=== PATIENT | male | born 1955 | race Caucasian/White ===

== ENCOUNTER 2018-04-01 14:41 | Inpatient (IN) ==
[2018-04-01] MEDS ORDERED: Heparin 1,000 UNITS/500 mL 500 ML ONE (16:24)
--- NOTE | 2018-04-01 16:31 | Vascular/Endovasc Consult Note ---
Date of Encounter: 04/01/18 Time of Encounter: 16:25 Assessment and Plan (1) PAD (peripheral artery disease) Current Visit: Yes Status: Acute Severe and limb threatening left lower extremity ischemia. Patient has obvious inflow obstruction to left lower extremity suggesting left ileal femoral occlusion. Suspect patient has long-standing atherosclerotic stenosis with recent and acute thrombosis. Patient to OR as an emergency this afternoon for limb salvage surgery. (2) HTN (hypertension) Current Visit: Yes Status: Acute The patient has severe hypertension. This will need further workup and treatment per medical service. Qualifiers: Hypertension type: unspecified Qualified Code(s): I10 - Essential (primary ) hypertension - History of Present Illness Consult date: 04/01/18 Consult reason: Left leg pain Chief complaint: Left leg pain History of present illness: Mr. Cooper is a 62 year old male Who was transferred from [facility] this afternoon because of left lower extremity symptoms. The patient states that he awoke this morning feeling in his usual state of health. He then went to work. While at work early this morning he felt severe left lower extremity and in particular left foot pain. He was unable to continue to work. He came home and then from there went to [facility]. There he underwent evaluation and noninvasive testing. Noninvasive testing demonstrated an ankle-brachial index of 0.68 on the right. No Doppler signals were identified on the left. High-grade stenosis was identified by duplex scanning in the right superficial femoral artery. Significantly reduced flow is identified throughout the left lower extremity. The patient is a very imprecise historian but I cannot clearly identify a history of claudication of the left lower extremity. He does state however he has had intermittent pain in the left leg that is rather vague. He does note that the left foot is now feeling better and he is able to move the toes of his left foot better now than he did earlier today. It is important to note that the patient has severe hypertension which has been poorly treated. He does not have a primary care physician at this time. He was in the emergency room last week at [facility] and he was started on blood pressure medicines. At that time he had no left lower extremity symptoms. The patient states that he is a former tobacco smoker but has not smoked for over 20 years. Other information from [facility] reveals an abnormal renal testing with a creatinine of approximally 2.6. Other laboratory tests show a normal CBC. Electrolytes are otherwise normal. Blood sugar is mildly elevated at 124. Lactic acid is elevated at 3.47. Medications and Allergies No Known Home Drugs 04/01/18 [History] 3 Allergy/AdvReac Type Severity Reaction Status Date / Time No Known Allergies Allergy Verified 04/01/18 16:14 All Systems Review: The remainder of the systems were reviewed and are negative Exam Vital Signs, Last 4 Hours Temp Pulse Resp BP Pulse Ox 04/01/18 16:16 98.9 F 71 20 200/87 98 General: Present: Conversant, No Apparent Distress, Well developed, Well nourished HEENT: Present: Atraumatic, Normocephaly, Trachea midline Neck: Present: Right Carotid bruit. Absent: JVD, Left Carotid bruit, Midline deformity, Tracheal deviation Cardiac: Present: Reg Rate and Rhythm, Normal S1 and S2, No Murmur. Absent: Irregular Rhythm Lungs: Present: Normal Breath Sounds Neuro: Present: Alert and responsive, No focal deficits noted, Cranial nerves grossly intact, Motor nerves grossly intact (Decreased movement of left foot compared to right). Absent: Sensory nerves grossly intact (Decreased sensation of left foot) Abdomen: Present: Soft, Non-tender, Other (No abdominal bruits. No pulsatile masses.). Absent: Masses Vascular: Present: Normal capillary refill (On the right), Bruit (Positive right femoral bruit. No left femoral bruit or pelvic bruit.), Pulse, absent ( No palpable femoral, popliteal, or pedal pulses on the left. Left foot is cooler than the right. No Doppler signals at left ankle.). Absent: Clubbing, Edema, Surgical incisions, Amputation(s) Skin: Present: No rashes noted on visualized skin. Absent: Wound/ulcer(s) Consult Discharge Plan - Plan Referrals: NONE,PCP [Primary Care Provider] -
[2018-04-01] MEDS ORDERED: Acetaminophen IV 1,000 MG/100 ML INFUS..BTL ONE (17:04)
[2018-04-01] MEDS ORDERED: *HR* Succinylcholine 200 MG/10 ML VIAL IVP ONE (17:06)
[2018-04-01] MEDS ORDERED: Ondansetron 4 MG/2 ML VIAL ONE (17:06)
[2018-04-01] MEDS ORDERED: *HR* Rocuronium Bromide 50 MG/5 ML VIAL ONE (17:06)
[2018-04-01] MEDS ORDERED: Dexamethasone 4 MG/ML VIAL ONE (17:06)
[2018-04-01] MEDS ORDERED: *HR* Propofol 200 MG/20 ML VIAL IVP ONE (17:06)
[2018-04-01] MEDS ORDERED: Lidocaine -MPF 4% 5 ML AMPUL ONE (17:06)
[2018-04-01] MEDS ORDERED: Lidocaine -MPF 2% 2 ML VIAL ONE (17:06)
[2018-04-01] MEDS ORDERED: *HR* FentaNYL (PF) 100 MCG/2 ML VIAL ONE (17:06)
[2018-04-01] MEDS ORDERED: *HR* Midazolam HCl 2 MG/2 ML VIAL ONE (17:06)
--- NOTE | 2018-04-01 17:09 | Anesthesia Evaluation PreOp ---
Date of Encounter: 04/01/18 Time of Encounter: 17:00 - Past History Planned Operation: Thrombectomy LLE Cardiac History: HTN, Hyperlipidemia, Other (PVD) Pulmonary History: Former smoker PATENT LITIGATION ASSOCIATE History: Denies Any Significant HX Other Medical History: Denies Any Significant HX Anesthesia History: No Prior Anesthetic Complications Alcohol Use: none Drug use: none Medications and Allergies No Known Home Drugs 04/01/18 [History] 3 Allergy/AdvReac Type Severity Reaction Status Date / Time No Known Allergies Allergy Verified 04/01/18 16:14 - Meds/Allergy Pre-op Review Medications Reviewed: Yes Allergies Reviewed: Yes Beta Blockers on Current Med List: No Anesthesia Exam O2 Sat Height 1.83 m Weight 89 kg O2 Sat by Pulse Oximetry 98 Vital Signs Temp Pulse Resp BP Pulse Ox 98.9 F 71 20 200/87 98 04/01/18 16:16 04/01/18 16:16 04/01/18 16:16 04/01/18 16:16 04/01/18 16:16 Height: 6'0 Weight: 196 lbs NPO (# of Hours): MN Pain Scale: 0 - HEENT Pupil (Motor): Pupils equal, EOMI Mallampati: III Teeth: Edentulous Oral Opening: Greater than 3 - PATENT LITIGATION ASSOCIATE LOC: Oriented PATENT LITIGATION ASSOCIATE Motor: Normal RUE, Normal LUE, Normal RLE, Normal LLE, Normal Face PATENT LITIGATION ASSOCIATE Sensory: Normal: RUE, LUE, RLE, LLE, Face - Cardiac Rhythm: Regular Murmur: None JVD: No Carotid Bruit: No - Pulmonary Breath Sounds: bilateral Clear Respiratory Effort: Symmetrical Anesthesia Assess/Plan ASA Score: 3 (HTN PVD), E Modified Ezio Scale for Level of Consciousness: Cooperative, oriented, and tranquil Anesthetic Plan: General Monitoring Plan: Standard Monitors Recovery Plan: PACU (Discussed GA, possible A-Line, agrees to proceed)
[2018-04-01] MEDS ORDERED: EPHEDrine 50 MG/ML VIAL ONE (18:06)
[2018-04-01] MEDS ORDERED: *HR* Metoprolol 5 MG/5 ML VIAL IVP ONE (18:47)
[2018-04-01] MEDS ORDERED: *HR* Meperidine 25 MG/ML SYRINGE IVP PRN (18:57)
[2018-04-01] MEDS ORDERED: *HR* OxyCODONE Immed Rel 5 MG TABLET PO PRN (18:57)
[2018-04-01] MEDS ORDERED: Albuterol 2.5 MG/3 ML NEBULIZER IH PRN (18:57)
[2018-04-01] MEDS ORDERED: *HR* Promethazine 25 MG/ML VIAL IVP PRN (18:57)
--- NOTE | 2018-04-01 19:10 | Operative Note ---
Date of procedure: 04/01/18 Pre-op diagnosis: Acute left lower extremity ischemialimb threatening Post-op diagnosis: same Procedure: Left lower extremity thrombectomy Complications: None Anesthesia: GETA Surgeon: Red Drummond Was there an career services assistant present: No Estimated blood loss (cc): 75 Specimen: Left iliac artery embolus/thrombus Condition: stable Disposition: PACU Procedure in Detail: History Mr. Cooper is a 62-year-old white male but was transferred as an emergency from [facility] to [place] this afternoon. He was found to have severe left lower extremity ischemia. He had an ankle-brachial index of 0. He had an abrupt onset of symptoms earlier this morning. On my exam I could palpate no pulses in the left lower extremity. He had a palpable right femoral pulse. Patient comes to the operating room as an emergency for limb threatening ischemia. Procedure After informed consent was obtained the patient was taken the operating room. General endotracheal anesthesia was established. The left lower extremity was sterilely prepped and draped. A timeout protocol was observed. An incision was made in the left groin. Dissection was carried down to the femoral artery and the femoral bifurcation. There were no palpable pulses. The artery had moderate atherosclerotic disease. The artery was not discolored or distended. The patient had been on IV heparin drip. An additional bolus of 3000 units of heparin were administered. The vessels were then clamped and a transverse arteriotomy was made on the distal aspect of the anterior portion of the common femoral artery. A 4-Tamazight Donald catheter was then passed both retrograde and antegrade. No thrombus was removed from either the superficial femoral or profunda femoris artery. Retrograde a large amount of material was removed. It appeared to be a single embolus or thrombus from the common iliac artery. Once this was removed the patient excellent pulsatile flow. The vessels were all flushed with heparinized saline. With this done the arteriotomy was closed using 6-0 Prolene suture. After appropriate backbleeding and flushing the clamps were removed. Pulsatile flow was then restored into the femoral system. There were excellent visible and palpable pulses at the femoral level. There were triphasic Doppler signals at the femoral level. A Doppler signals identified over the popliteal artery area no Doppler signal was identified over the left ankle area. The left groin was then irrigated. The wound was then closed in layers. The heparin drip will be continued postoperatively. The patient will need further testing once the renal function is improved and his hypertension is under better control. Also because of the appearance of the material in the left iliac system and an echocardiogram will be obtained to rule out the possibility of an embolus from the heart. A dry sterile dressing was applied to the left groin. The patient was taken from the operating room to the recovery room in stable condition.
[2018-04-01] MEDS ORDERED: Acetaminophen 325 MG TABLET PO PRN ×2 (20:44→23:00)
[2018-04-01] MEDS ORDERED: Naloxone 0.4 MG/ML INJ IVP PRN ×2 (20:44→23:00)
[2018-04-01] MEDS ORDERED: *HR* Labetalol 20 MG/4 ML SYRINGE IVP PRN (20:44)
--- NOTE | 2018-04-01 20:59 | Anesthesia Evaluation Post Op ---
Date of Encounter: 04/01/18 Time of Encounter: 20:58 - Vital Signs Vital Signs: Vital Signs/O2 Sat, Most Current Temp Pulse Resp BP Pulse Ox 98.2 F 73 16 148/72 95 04/01/18 20:16 04/01/18 20:16 04/01/18 20:16 04/01/18 20:16 04/01/18 20:16 - Lungs Lungs: Clear Ascult./Percussion - Airway Airway: Non-obstructed - Cardiovascular Regular Rate - Mental Status Mental Status: Alert & Oriented, Answers Appropriately - Pain Pain Scale: 0 Pain Scale used: Numeric (1 - 10) - Nausea Vomiting Nausea Vomiting: Not Present - Hydration Hydration: Ice chips, Rodriguez catheter - Discharge PostOp Status: Transfer Patient to floor
[2018-04-01] MEDS: D5% in 0.45% NACL 1,000 ML IVC SCH (21:02)
[2018-04-01] MEDS ORDERED: *HR* Heparin 5,000 UNIT/ML VIAL IVP PRN (22:15)
[2018-04-01] MEDS ORDERED: *HR* Heparin 5,000 UNIT/ML VIAL IVP ONE (22:15)
--- NOTE | 2018-04-01 22:46 | Internal Med History&Physical ---
Date of Encounter: 04/01/18 Time of Encounter: 22:37 Internal Medicine - H&P: HPI Admitted From: Emergency Dept Plans for Post Hospital Care: Home History of present illness: Mr. Cooper is a 62 year old male with past medical history of PAD, HTN, and former smoker. Pt presented to [facility] with sudden onset of LLE pain and numbness. Pt states he was not able to move his LLE today. Reports it was painful and cold to the touch. He denies prior hx of CAD, CA or HLD that he is aware of. Pt was evaluated at [facility] and sent over to be evaluated by vascular. At [facility] he was reported to have no distal pulses in either extremity and was unable to obatin doppler pulses. Also was unable to perform CT due to poor GFR and elevated Cr. Arterial doppler performed showed 75% stenosis of R superficial femoral artery and nearly 100% occlusion to left leg distal knee. ED administered Morphine and fentanyl for pain control and Heparin bolus of %,000 units with drip. CODE STATUS: FULL. Past Med Surg Social Fam HX - Social History Smoking Status: Former smoker Smokeless Tobacco Status: No Alcohol use: none Drug use: none Internal Medicine - H&P: Meds No Known Home Drugs 04/01/18 [History] 3 Allergy/AdvReac Type Severity Reaction Status Date / Time No Known Allergies Allergy Verified 04/01/18 16:14 All Systems PM: A 10-system review of systems was performed and is negative for pertinent findings except as documented above in the HPI. - Constitutional Vitals: Temp Pulse Resp BP Pulse Ox 98.2 F 79 16 148/72 95 04/01/18 20:16 04/01/18 21:00 04/01/18 20:16 04/01/18 20:16 04/01/18 20:16 General appearance: Present: A&O X 3, no acute distress - Head Head exam: Present: atraumatic, normocephalic - Eye Eye exam: Present: PERRL, conjuntiva pink, sclera anicteric Pupils: Present: PERRL - Neck Neck exam general surgery: Present: supple, trachea midline. Absent: lymphadenopathy - Respiratory Respiratory exam: Present: CTAB. Absent: accessory muscle use, rales, rhonchi, wheezes - Cardiovascular Cardiovascular exam: Present: RRR, +S1, +S2. Absent: diastolic murmur, gallop, rubs, systolic murmur - GI/Abdominal GI/Abdominal exam: Present: normal bowel sounds, soft, no peritoneal signs. Absent: distended, tenderness - Extremities Exam Extremities exam: Present: warm, radial pulses palpable and symmetrical. Absent : calf tenderness, cyanotic, pedal edema - Neurological Exam Neurological exam: Present: CN II-XII intact, oriented X3, no focal deficits. Absent: pronater drift, facial droop, speech deficit - Skin Skin exam: Present: dry, intact - VTE Reasons for not Prescribing Prophylaxis: Not indicated-Anticoagulated or INR therapeutic Documentation of Mechanical Device: Intermittent pneumatic compression device - Assessment and plan (1) Ischemia of left lower extremity Current Visit: Yes Status: Acute Assessment and plan: Pt is s/p limb salvage surgery. Vascular following. (2) Former smoker Current Visit: Yes Status: Acute Assessment and plan: Pt states eh quit 30 years ago. (3) PAD (peripheral artery disease) Current Visit: Yes Status: Acute Assessment and plan: Severe and limb threatening left lower extremity ischemia. Pt though denies hx of CAD or atherosclerotic disease, likely has long standing hx of this. Vascular on board. P will likely need to be started on Plavix and or ASA, will defer to vascular. Will check Lipid panel. (4) HTN (hypertension) Current Visit: Yes Status: Acute Assessment and plan: Will order hydralazine 5 mg IV prn for now. Pt non-complaint with BP medication and states he does not know what it is. Will clarify with his pharmacy in am. Qualifiers: Hypertension type: essential hypertension Qualified Code(s): I10 - Essential (primary) hypertension - Time Spent With Patient Total time spent is greater than 50% in coordination of care (as documented) at patient's floor/unit and/or counseling patient: 25 - 35 minutes
[2018-04-01] MEDS ORDERED: *HR* HYDROcodone/Acet 5/325 mg TABLET PO PRN (23:00)
[2018-04-01 23:25] LABS: Basophils % 0.2 %; Eosinophils % 0.5 %; Hematocrit 39.6 % (37.5-50.1); Hemoglobin 13.3 g/dL (12.9-16.9); Immature Granulocytes % 0.3 % (0-4); Lymphocytes # 0.3 K/mcL (0.6-4.6); Lymphocytes % 5.4 %; Mean Corpuscular HGB Conc 33.6 g/dL (31.6-35.5); Mean Corpuscular Hemoglobin 28.5 pg (28.0-33.3); Mean Platelet Volume 10.3 fL (9.4-12.4); Monocytes # 0.2 K/mcL (0.0-1.3); Monocytes % 2.9 %; Neutrophils # 5.7 K/mcL (1.6-8.9); Platelet Count 151 K/mcL (140-400); Red Blood Count 4.66 M/mcL (4.19-5.50); Red Cell Distribution Width 12.6 % (11.5-14.5); Segmented Neutrophils % 90.7 %
[2018-04-01] MEDS: Heparin 25,000 UNIT/500 ML D5W 25,000 UNIT/500 ML BAG IVC SCH (23:34)
[2018-04-01] MEDS: *HR* HYDROcodone/Acet 5/325 mg TABLET PO PRN (23:39)
[2018-04-01 23:44] LABS: Calcium 9.2 mg/dL (8.6-10.3)
[2018-04-02 03:20] LABS: Basophils % 0.3 %; Eosinophils % 0.2 %; Hematocrit 39.9 % (37.5-50.1); Hemoglobin 13.2 g/dL (12.9-16.9); Immature Granulocytes % 0.3 % (0-4); Lymphocytes # 0.4 K/mcL (0.6-4.6); Lymphocytes % 7.1 %; Mean Corpuscular HGB Conc 33.1 g/dL (31.6-35.5); Mean Corpuscular Hemoglobin 28.3 pg (28.0-33.3); Mean Corpuscular Volume 85.6 fL (83.0-100.0); Mean Platelet Volume 10.6 fL (9.4-12.4); Monocytes # 0.2 K/mcL (0.0-1.3); Neutrophils # 5.1 K/mcL (1.6-8.9); Platelet Count 151 K/mcL (140-400); Red Blood Count 4.66 M/mcL (4.19-5.50); Red Cell Distribution Width 12.7 % (11.5-14.5); Segmented Neutrophils % 88.1 %
[2018-04-02 03:39] LABS: Calcium 9.2 mg/dL (8.6-10.3); Chol/HDL Ratio 7.1 (0-4.9); Potassium 4.6 mEq/L (3.5-5.1)
[2018-04-02] MEDS: *HR* Heparin 5,000 UNIT/ML VIAL IVP PRN (03:39)
[2018-04-02] MEDS: *HR* OxyCODONE Immed Rel 5 MG TABLET PO PRN (07:53)
[2018-04-02] MEDS: D5% in 0.45% NACL 1,000 ML IVC SCH ×2 (07:58→20:31)
--- NOTE | 2018-04-02 09:38 | Internal Med Progress Note ---
Date of Encounter: 04/02/18 Time of Encounter: 09:30 - Assessment and plan (1) Ischemia of left lower extremity Current Visit: Yes Status: Acute Assessment and plan: s/p limb salvage surgery wih left lower extremity thrombectomy, Vascular surgery following. Vascular surgery suspect patient has distal disease in popliteal area, May need further intevention of angiography with angioplasty or left lower extremity surgery (2) PAD (peripheral artery disease) Current Visit: Yes Status: Acute Assessment and plan: s/p surgery.Continue heparin drip (3) HTN (hypertension) Current Visit: Yes Status: Acute Assessment and plan: hydralazine and labetalol PRN. Will start amlodipine 5mg po daily Qualifiers: Hypertension type: essential hypertension Qualified Code(s): I10 - Essential (primary) hypertension (4) DVT prophylaxis Current Visit: Yes Status: Acute Assessment and plan: On heparin drip - Time Spent With Patient Total time spent is greater than 50% in coordination of care (as documented) at patient's floor/unit and/or counseling patient: - Subjective Interval history: No acute events overnight - Constitutional Vitals: Temp Pulse Resp BP Pulse Ox 98.8 F 65 18 152/74 94 04/02/18 07:02 04/02/18 07:02 04/02/18 07:02 04/02/18 07:02 04/02/18 07:02 General appearance: Present: A&O X 3, no acute distress - Head Head exam: Present: atraumatic, normocephalic - Eye Eye exam: Present: PERRL, conjuntiva pink, sclera anicteric Pupils: Present: PERRL - Neck Neck exam general surgery: Present: supple, trachea midline. Absent: lymphadenopathy - Respiratory Respiratory exam: Present: CTAB. Absent: accessory muscle use, rales, rhonchi, wheezes - Cardiovascular Cardiovascular exam: Present: RRR, +S1, +S2. Absent: diastolic murmur, gallop, rubs, systolic murmur - GI/Abdominal GI/Abdominal exam: Present: normal bowel sounds, soft, no peritoneal signs. Absent: distended, tenderness - Extremities Exam Extremities exam: Absent: calf tenderness, cyanotic, pedal edema Additional comments: Lower extremity pulses difficult to palpate - Neurological Exam Neurological exam: Present: CN II-XII intact, oriented X3, no focal deficits. Absent: pronater drift, facial droop, speech deficit - Skin Skin exam: Present: dry, intact Internal Medicine: Result - Labs CBC & Chem 7: 04/02/18 03:08 04/02/18 03:08 Labs: Short CBC 04/01/18 04/02/18 Range/Units 23:13 03:08 WBC 6.3 5.8 (4.3-11.1) K/mcL Hgb 13.3 13.2 (12.9-16.9) g/dL Hct 39.6 39.9 (37.5-50.1) % Plt Count 151 151 (140-400) K/mcL Neutrophils # 5.7 5.1 (1.6-8.9) K/mcL BMP 04/01/18 04/02/18 23:13 03:08 Sodium 133 L 135 L Potassium 4.0 4.6 Chloride 105 106 Carbon Dioxide 20 L 21 L BUN 23 21 Creatinine 1.73 H 1.66 H Glucose 186 H 177 H Calcium 9.2 9.2 - VTE Reasons for not Prescribing Prophylaxis: Not indicated-Anticoagulated or INR therapeutic Documentation of Mechanical Device: Intermittent pneumatic compression device Consult Discharge Plan - Plan Referrals: Mandy Kerr [Advanced Practice Nurse] - 04/10/18 2:00 pm (Please fill out the new patient packet and take with you to your appointment. Show up 15 mins early. If you do not receive the new patient packet before your appointment show up 30mins early to fill out paper work. You will need $125.00 for the first visit. Take a list of all medications including over the counter. Picture ID, Ins. cards. If you need to cancel please call [phone] within 24 hours of your appointment) Red Drummond MD [Partnered Physician] - 04/24/18 11:45 am
[2018-04-02] MEDS: amLODIPine 5 MG TABLET PO SCH (11:46)
--- NOTE | 2018-04-02 12:46 | Vascular/Endovas Progress Note ---
Date of Encounter: 04/02/18 Time of Encounter: 08:15 - Assessment and plan (1) PAD (peripheral artery disease) Current Visit: Yes Status: Acute The patient's limb threatening status has been improved but the perfusion to the distal aspect of the left leg is still marginal. I would have expected he would have a stronger Doppler signal and increased temperature to the foot. Therefore I suspect he has distal disease probably in the popliteal area. Thus he will need further evaluation but this will require contrast. His BUN and creatinine have significantly improved from his admission. With continued hydration I would then suggest that a CT angiogram be performed tomorrow with an aortogram with runoff assuming his BUN and creatinine continue to improve. Also by then the echocardiogram will be performed and will have more ration about a potential embolic issue from the cardiac status. In the meantime we'll continue him on anticoagulation medication. Patient may need further intervention during this hospitalization of either angiography with angioplasty or left lower extremity surgery (2) HTN (hypertension) Current Visit: Yes Status: Acute The patient has history of severe hypertension. This will need further workup and treatment per medical service. His blood pressure following surgery shows moderate systolic hypertension but is under relatively good control. Qualifiers: Hypertension type: essential hypertension Qualified Code(s): I10 - Essential (primary) hypertension - Subjective Interval history: Patient is postoperative day #1 following emergency iliac thrombectomy. Pathology on the material removed is still pending. An echocardiogram was ordered postoperatively and that is still pending as well. Patient states his left leg is feeling better though he is not done any walking yet following surgery. Vital Signs, Last 4 Hours Temp Pulse Resp BP Pulse Ox 04/02/18 11:27 97.8 F 58 18 157/70 95 - Physical Examination General: Present: Conversant, No Apparent Distress Vascular: Present: Pulse, absent (The patient does not have a palpable left foot pulse. He does have monophasic Doppler signals at the dorsalis pedis and posterior tibial levels.), Color/Temperature (Left foot is warmer than yesterday but is still cooler than the right foot.), Surgical incisions (Dry dressing on the left groin incision) Abdomen: Present: Soft, Non-tender - VTE Reasons for not Prescribing Prophylaxis: Not indicated-Anticoagulated or INR therapeutic Documentation of Mechanical Device: Intermittent pneumatic compression device Results 04/02/18 03:08 04/02/18 03:08 Lab Results, Last 24 hours 04/01/18 04/01/18 04/01/18 19:45 23:13 23:13 WBC 6.3 Hgb 13.3 Hct 39.6 Plt Count 151 APTT 92.1 H Sodium 133 L Potassium 4.0 Chloride 105 Carbon Dioxide 20 L BUN 23 Creatinine 1.73 H Glucose 186 H Calcium 9.2 04/02/18 04/02/18 04/02/18 03:08 03:08 03:08 WBC 5.8 Hgb 13.2 Hct 39.9 Plt Count 151 APTT 54.9 H Sodium 135 L Potassium 4.6 Chloride 106 Carbon Dioxide 21 L BUN 21 Creatinine 1.66 H Glucose 177 H Calcium 9.2 04/02/18 09:19 WBC Hgb Hct Plt Count APTT 91.9 H D Sodium Potassium Chloride Carbon Dioxide BUN Creatinine Glucose Calcium - Imaging / Other Tests Echo: pending Consult Discharge Plan - Plan Referrals: Mandy Kerr [Advanced Practice Nurse] - 04/10/18 2:00 pm (Please fill out the new patient packet and take with you to your appointment. Show up 15 mins early. If you do not receive the new patient packet before your appointment show up 30mins early to fill out paper work. You will need $125.00 for the first visit. Take a list of all medications including over the counter. Picture ID, Ins. cards. If you need to cancel please call [phone] within 24 hours of your appointment) Red Drummond MD [Partnered Physician] - 04/24/18 11:45 am
[2018-04-02] MEDS ORDERED: Melatonin 3 MG TABLET PO PRN (19:46)
[2018-04-02] MEDS: Heparin 25,000 UNIT/500 ML D5W 25,000 UNIT/500 ML BAG IVC SCH (21:46)
[2018-04-02 23:21] LABS: Activated Partial Thrombo Time 130.9 Seconds (26.0-36.0)
[2018-04-02 23:34] LABS: Heparin anti-factor XA UFH 1.04 IU/mL (0.30-0.70)
[2018-04-03] MEDS: *HR* HYDROcodone/Acet 5/325 mg TABLET PO PRN ×2 (02:27→13:46)
[2018-04-03 04:07] LABS: Basophils % 0.3 %; Eosinophils # 0.3 K/mcL (0.0-0.6); Eosinophils % 3.2 %; Hemoglobin 12.5 g/dL (12.9-16.9); Immature Granulocytes % 0.3 % (0-4); Immature Platelets 4.6 % (1.1-6.1); Lymphocytes # 0.9 K/mcL (0.6-4.6); Lymphocytes % 9.1 %; Mean Corpuscular HGB Conc 32.9 g/dL (31.6-35.5); Mean Corpuscular Hemoglobin 28.5 pg (28.0-33.3); Mean Corpuscular Volume 86.6 fL (83.0-100.0); Mean Platelet Volume 10.7 fL (9.4-12.4); Monocytes # 0.7 K/mcL (0.0-1.3); Monocytes % 7.8 %; Neutrophils # 7.5 K/mcL (1.6-8.9); Platelet Count 161 K/mcL (140-400); Red Blood Count 4.39 M/mcL (4.19-5.50); Red Cell Distribution Width 12.8 % (11.5-14.5); Segmented Neutrophils % 79.3 %
[2018-04-03 04:31] LABS: BUN/Creatinine Ratio 18 (6-26); Blood Urea Nitrogen 18 mg/dL (8-23); Calcium 9.1 mg/dL (8.6-10.3); Carbon Dioxide 22 mEq/L (23-29); Chloride 104 mEq/L (98-107); Glucose 125 mg/dL (70-105); Osmolality,Calculated 281 (280-300); Potassium 3.9 mEq/L (3.5-5.1); Sodium 134 mEq/L (136-145); eGFR For African Americans > 60 (> 60); eGFR For Non-African Americans > 60 (> 60)
[2018-04-03] MEDS: D5% in 0.45% NACL 1,000 ML IVC SCH ×2 (06:58→17:55)
[2018-04-03] MEDS: amLODIPine 5 MG TABLET PO SCH (07:33)
[2018-04-03] MEDS: *HR* OxyCODONE Immed Rel 5 MG TABLET PO PRN ×2 (07:34→18:00)
[2018-04-03] MEDS ORDERED: Isovue-370 500 ML INFUS..BTL IV ONE (07:46)
--- NOTE | 2018-04-03 09:50 | Internal Med Progress Note ---
Date of Encounter: 04/03/18 Time of Encounter: 09:45 - Assessment and plan (1) Ischemia of left lower extremity Current Visit: Yes Status: Acute Assessment and plan: s/p limb salvage surgery wih left lower extremity thrombectomy, Vascular surgery following. Vascular surgery suspect patient has distal disease in popliteal area, May need further intevention of angiography with angioplasty or left lower extremity surgery. Plan for CT angiogram today (2) PAD (peripheral artery disease) Current Visit: Yes Status: Acute Assessment and plan: s/p surgery.Continue heparin drip (3) HTN (hypertension) Current Visit: Yes Status: Acute Assessment and plan: hydralazine and labetalol PRN. Will start amlodipine 5mg po daily Qualifiers: Hypertension type: essential hypertension Qualified Code(s): I10 - Essential (primary) hypertension (4) DVT prophylaxis Current Visit: Yes Status: Acute Assessment and plan: On heparin drip - Time Spent With Patient Total time spent is greater than 50% in coordination of care (as documented) at patient's floor/unit and/or counseling patient: - Subjective Interval history: No acute events overnight - Constitutional Vitals: Temp Pulse Resp BP Pulse Ox 99.1 F 64 17 151/77 95 04/03/18 07:02 04/03/18 07:02 04/03/18 07:02 04/03/18 07:02 04/03/18 07:02 General appearance: Present: A&O X 3, no acute distress - Head Head exam: Present: atraumatic, normocephalic - Eye Eye exam: Present: PERRL, conjuntiva pink, sclera anicteric Pupils: Present: PERRL - Neck Neck exam general surgery: Present: supple, trachea midline. Absent: lymphadenopathy - Respiratory Respiratory exam: Present: CTAB. Absent: accessory muscle use, rales, rhonchi, wheezes - Cardiovascular Cardiovascular exam: Present: RRR, +S1, +S2. Absent: diastolic murmur, gallop, rubs, systolic murmur - GI/Abdominal GI/Abdominal exam: Present: normal bowel sounds, soft, no peritoneal signs. Absent: distended, tenderness - Extremities Exam Extremities exam: Present: warm, radial pulses palpable and symmetrical. Absent : calf tenderness, cyanotic, pedal edema Additional comments: faint pulses bilaterally - Neurological Exam Neurological exam: Present: CN II-XII intact, oriented X3, no focal deficits. Absent: pronater drift, facial droop, speech deficit - Skin Skin exam: Present: dry, intact Internal Medicine: Result - Labs CBC & Chem 7: 04/03/18 02:51 04/03/18 02:51 Labs: Short CBC 04/03/18 Range/Units 02:51 WBC 9.5 D (4.3-11.1) K/mcL Hgb 12.5 L (12.9-16.9) g/dL Hct 38.0 (37.5-50.1) % Plt Count 161 (140-400) K/mcL Neutrophils # 7.5 (1.6-8.9) K/mcL BMP 04/03/18 02:51 Sodium 134 L Potassium 3.9 Chloride 104 Carbon Dioxide 22 L BUN 18 Creatinine 0.99 Glucose 125 H Calcium 9.1 - Impressions Impressions Echocardiogram 04/02/18 20:44 Impressions: LVEF 60%. Normal LV chamber size, wall thickness and function. Mild left ventricular diastolic dysfunction. Normal right ventricular structure and function. No evidence of pulmonary hypertension. No significant valvular dysfunction. Left Ventricular Wall Motion: Rest Echo Findings All wall segments showed normal motion. Findings: Study Quality * Technically adequate exam. ECG Findings * Normal sinus rhythm. Left Ventricle * LVEF 60%. * Normal LV chamber size, wall thickness and function. * Mild left ventricular diastolic dysfunction. Right Ventricle * Normal right ventricular structure and function. Left Atrium * Mildly dilated left atrium. Right Atrium * Normal right atrial size. Interatrial Septum * Interatrial septum not well evaluated. Aortic Valve * Aortic valve not well visualized. * No aortic regurgitation. * No aortic stenosis. Mitral Valve * Normal mitral valve structure and function. * No mitral regurgitation. * No mitral stenosis. Tricuspid Valve * Normal tricuspid valve structure and function. * Trace tricuspid regurgitation. * No evidence of pulmonary hypertension. Pulmonic Valve * Normal pulmonic valve structure and function. * No pulmonic regurgitation. Aorta * Normally sized aortic root. Pericardium * The pericardium appears normal. IVC * Normal IVC dimensions and inspiratory collapse. Pulmonary Artery * Normal visualized portions of the main pulmonary artery. - VTE Reasons for not Prescribing Prophylaxis: Not indicated-Anticoagulated or INR therapeutic Documentation of Mechanical Device: Intermittent pneumatic compression device Consult Discharge Plan - Plan Referrals: Madny Kerr [Advanced Practice Nurse] - 04/10/18 2:00 pm (Please fill out the new patient packet and take with you to your appointment. Show up 15 mins early. If you do not receive the new patient packet before your appointment show up 30mins early to fill out paper work. You will need $125.00 for the first visit. Take a list of all medications including over the counter. Picture ID, Ins. cards. If you need to cancel please call [phone] within 24 hours of your appointment) Red Drummond MD [Partnered Physician] - 04/24/18 11:45 am
--- NOTE | 2018-04-03 10:18 | Vascular/Endovas Progress Note ---
Date of Encounter: 04/03/18 Time of Encounter: 08:00 - Assessment and plan (1) PAD (peripheral artery disease) Current Visit: Yes Status: Acute The left lower extremity perfusion is clearly improved from his preoperative state and improved from yesterday. However the patient complains of persistent left foot pain. Therefore I recommended that we obtain a CT aortogram with runoff today to further evaluate his lower extremity status. Pending the results of the CTA the patient may require than either angiography with endovascular therapy or further surgery for the left lower extremity. Should this be necessary we'll plan on offering this to the patient tomorrow. For today Will continue his intravenous heparin drip and IV hydration. His renal function has returned to normal. He has had excellent urinary output. His blood pressure has remained acceptable. The left foot is clearly viable and improved. (2) HTN (hypertension) Current Visit: Yes Status: Acute The patient has history of severe hypertension. This will need further workup and treatment per medical service. His blood pressure following surgery shows moderate systolic hypertension but is under relatively good control. Qualifiers: Hypertension type: essential hypertension Qualified Code(s): I10 - Essential (primary) hypertension - Subjective Interval history: Patient is postoperative day #2 following emergency iliac thrombectomy. Pathology on the material removed is still pending. An echocardiogram performed yesterday was normal. There are no findings to suggest significant left ventricular wall changes or source of potential embolization. Patient states his left foot continues to cause him pain. He states that the left foot is no better than prior to the emergency embolectomy. The patient has not done any walking. Vital Signs, Last 4 Hours Temp Pulse Resp BP Pulse Ox 04/03/18 07:02 99.1 F 64 17 151/77 95 - Physical Examination General: Present: Conversant, No Apparent Distress Vascular: Present: Color/Temperature (The color and temperature of the left foot and toes is improved today as compared to yesterday.), Surgical incisions ( Dry dressing on left groin incision), Other (Patient has stronger and more multiphasic Doppler signals at the left foot and ankle today as compared to yesterday.). Absent: Edema Abdomen: Present: Soft, Non-tender Skin: Present: No rashes noted on visualized skin - VTE Reasons for not Prescribing Prophylaxis: Not indicated-Anticoagulated or INR therapeutic Documentation of Mechanical Device: Intermittent pneumatic compression device Results 04/03/18 02:51 06/20/18 02:51 Lab Results, Last 24 hours 04/02/18 04/02/18 04/03/18 16:12 22:45 02:51 WBC 9.5 D Hgb 12.5 L Hct 38.0 Plt Count 161 APTT 40.1 H D 130.9 H* D Sodium Potassium Chloride Carbon Dioxide BUN Creatinine Glucose Calcium 04/03/18 04/03/18 02:51 06:22 WBC Hgb Hct Plt Count APTT 46.7 H D Sodium 134 L Potassium 3.9 Chloride 104 Carbon Dioxide 22 L BUN 18 Creatinine 0.99 Glucose 125 H Calcium 9.1 - Imaging / Other Tests Echo: report reviewed Consult Discharge Plan - Plan Referrals: Mandy Kerr [Advanced Practice Nurse] - 04/10/18 2:00 pm (Please fill out the new patient packet and take with you to your appointment. Show up 15 mins early. If you do not receive the new patient packet before your appointment show up 30mins early to fill out paper work. You will need $125.00 for the first visit. Take a list of all medications including over the counter. Picture ID, Ins. cards. If you need to cancel please call [phone] within 24 hours of your appointment) Red Drummond MD [Partnered Physician] - 04/24/18 11:45 am
[2018-04-03] MEDS: Heparin 25,000 UNIT/500 ML D5W 25,000 UNIT/500 ML BAG IVC SCH (17:21)
--- NOTE | 2018-04-03 18:11 | Event Note ---
Date of Encounter: 04/03/18 Time of Encounter: 18:10 I have personally reviewed the CT angiogram images I ordered earlier today. This demonstrates a lesion at the distal popliteal and tibial peroneal trunk on the left. I believe this represents a combination of both acute and chronic disease. Therefore recommended to the patient to optimize his left lower extremity perfusion he would need to return to the operating room for surgical thrombectomy possible endarterectomy possible bypass for this left sided lesion. This is not amenable to endovascular intervention. After full discussion the patient agrees and we'll proceed with surgery for tomorrow morning.
[2018-04-03] MEDS: *HR* Heparin 5,000 UNIT/ML VIAL IVP PRN (21:54)
--- NOTE | 2018-04-03 22:02 | Anesthesia Evaluation PreOp ---
Date of Encounter: 04/03/18 Time of Encounter: 22:00 - Past History Planned Operation: Left FEm-fem Bypass Cardiac History: HTN, Hyperlipidemia, Other (PVD) Pulmonary History: Denies Any Significant HX APRON MAN History: Denies Any Significant HX Other Medical History: Denies Any Significant HX Anesthesia History: No Prior Anesthetic Complications, Past Anesthesia (LLE Thrombectomy 04/01/2018) Alcohol Use: none Drug use: none Medications and Allergies No Known Home Drugs 04/01/18 [History] 3 Allergy/AdvReac Type Severity Reaction Status Date / Time No Known Allergies Allergy Verified 04/01/18 16:14 - Meds/Allergy Pre-op Review Medications Reviewed: Yes Allergies Reviewed: Yes Beta Blockers on Current Med List: Yes If Beta Blockers taken, Date/Time (Last Dose taken): labetalol @ 18:40 2017 Anesthesia Results - Labs 04/03/18 02:51 04/03/18 02:51 Echocardiogram Name: Carlos Cooper Date of Study: 04/02/2018 EV/EV echocardiogram Impressions: LVEF 60%. Normal LV chamber size, wall thickness and function. Mild left ventricular diastolic dysfunction. Normal right ventricular structure and function. No evidence of pulmonary hypertension. No significant valvular dysfunction. - Imaging EKG: other (Telemetry strip 04/02/2018 NSR) Anesthesia Exam Vital Signs/O2 Sat, Most Current Temp Pulse Resp BP Pulse Ox 99.1 F 67 16 165/74 93 04/03/18 18:53 04/03/18 18:53 04/03/18 18:53 04/03/18 18:53 04/03/18 18:53 NPO (# of Hours): > 8 hrs Pain Scale: 0 - HEENT Pupil (Motor): Pupils equal, EOMI Mallampati: III Teeth: Edentulous Oral Opening: Greater than 3 - APRON MAN LOC: Oriented APRON MAN Motor: Normal RUE, Normal LUE, Normal RLE, Normal LLE, Normal Face APRON MAN Sensory: Normal: RUE, LUE, RLE, LLE, Face - Cardiac Rhythm: Regular Murmur: None JVD: No Carotid Bruit: No - Pulmonary Breath Sounds: bilateral Clear Respiratory Effort: Symmetrical Anesthesia Assess/Plan ASA Score: 3 Modified [place] Scale for Level of Consciousness: Cooperative, oriented, and tranquil Anesthetic Plan: General Monitoring Plan: Standard Monitors, A-Line (possible)
[2018-04-04] MEDS: D5% in 0.45% NACL 1,000 ML IVC SCH ×2 (03:41→03:42)
[2018-04-04] MEDS: *HR* OxyCODONE Immed Rel 5 MG TABLET PO PRN (03:42)
[2018-04-04 04:55] LABS: Basophils % 0.5 %; Eosinophils # 0.2 K/mcL (0.0-0.6); Eosinophils % 2.5 %; Hematocrit 37.8 % (37.5-50.1); Hemoglobin 12.7 g/dL (12.9-16.9); Immature Granulocytes % 0.5 % (0-4); Lymphocytes # 1.2 K/mcL (0.6-4.6); Lymphocytes % 13.1 %; Mean Corpuscular HGB Conc 33.6 g/dL (31.6-35.5); Mean Corpuscular Hemoglobin 29.1 pg (28.0-33.3); Mean Corpuscular Volume 86.5 fL (83.0-100.0); Mean Platelet Volume 10.4 fL (9.4-12.4); Monocytes # 0.8 K/mcL (0.0-1.3); Monocytes % 9.3 %; Neutrophils # 6.5 K/mcL (1.6-8.9); Platelet Count 167 K/mcL (140-400); Red Blood Count 4.37 M/mcL (4.19-5.50); Red Cell Distribution Width 12.7 % (11.5-14.5); Segmented Neutrophils % 74.1 %
[2018-04-04 05:15] LABS: BUN/Creatinine Ratio 15 (6-26); Blood Urea Nitrogen 12 mg/dL (8-23); Calcium 9.1 mg/dL (8.6-10.3); Carbon Dioxide 24 mEq/L (23-29); Chloride 103 mEq/L (98-107); Glucose 127 mg/dL (70-105); Osmolality,Calculated 279 (280-300); Potassium 3.9 mEq/L (3.5-5.1); Sodium 134 mEq/L (136-145); eGFR For African Americans > 60 (> 60); eGFR For Non-African Americans > 60 (> 60)
[2018-04-04] MEDS ORDERED: ceFAZolin 1,000 MG, Sodium Chloride IRRigation 1,000 ML IR ONE (06:00)
[2018-04-04] MEDS ORDERED: *HR* FentaNYL (PF) 100 MCG/2 ML VIAL ONE ×2 (06:28→17:11)
[2018-04-04] MEDS ORDERED: Ondansetron 4 MG/2 ML VIAL ONE (06:28)
[2018-04-04] MEDS ORDERED: Dexamethasone 4 MG/ML VIAL ONE (06:28)
[2018-04-04] MEDS ORDERED: *HR* Propofol 200 MG/20 ML VIAL IVP ONE (06:28)
[2018-04-04] MEDS ORDERED: *HR* Succinylcholine 200 MG/10 ML VIAL IVP ONE (06:28)
[2018-04-04] MEDS ORDERED: *HR* Midazolam HCl 2 MG/2 ML VIAL ONE ×2 (06:28→16:52)
[2018-04-04] MEDS ORDERED: Lidocaine -MPF 2% 2 ML VIAL ONE ×2 (06:28→07:23)
[2018-04-04] MEDS ORDERED: *HR* PHENYLEPHRINE 1,000 MCG/10 ML SYRINGE IVP ONE ×3 (06:29→10:30)
[2018-04-04] MEDS ORDERED: *HR* Remifentanil 2 MG VIAL IVP ONE (06:31)
[2018-04-04] MEDS ORDERED: Heparin 1,000 UNITS/500 mL 1,000 ML ONE (07:13)
[2018-04-04] MEDS ORDERED: Heparin 1,000 UNITS/500 mL 500 ML ONE ×2 (07:23→14:27)
[2018-04-04] MEDS ORDERED: Heparin 25,000 UNIT/500 ML D5W 25,000 UNIT/500 ML BAG IVC ONE (09:16)
[2018-04-04] MEDS ORDERED: Dexamethasone 4 MG/ML VIAL IVP ONE ×2 (10:01→17:53)
[2018-04-04] MEDS ORDERED: Ondansetron 4 MG/2 ML VIAL IVP ONE ×2 (10:01→17:53)
[2018-04-04] MEDS ORDERED: *HR* Morphine 2 MG/ML SYRINGE IVP PRN ×2 (10:01→17:53)
[2018-04-04] MEDS ORDERED: *HR* Labetalol 20 MG/4 ML SYRINGE IVP PRN ×2 (10:01→17:53)
[2018-04-04] MEDS ORDERED: Acetaminophen IV 1,000 MG/100 ML INFUS..BTL IVPB ONE ×2 (10:01→17:53)
[2018-04-04] MEDS ORDERED: traMADol 50 MG TABLET PO PRN ×2 (10:11→17:53)
--- NOTE | 2018-04-04 10:24 | Internal Med Progress Note ---
Date of Encounter: 04/04/18 Time of Encounter: 10:20 - Assessment and plan (1) Ischemia of left lower extremity Current Visit: Yes Status: Acute Assessment and plan: s/p limb salvage surgery wih left lower extremity thrombectomy, Vascular surgery following. Vascular surgery suspect patient has distal disease in popliteal area. CT angiogram done yesterday showed left lower lesion at distal popliteal and tibial peroneal trunk on the left. Vascular surgery plan for thrombectomy with endarterectomy today (2) PAD (peripheral artery disease) Current Visit: Yes Status: Acute Assessment and plan: s/p surgery.Continue heparin drip (3) HTN (hypertension) Current Visit: Yes Status: Acute Assessment and plan: hydralazine and labetalol PRN. Will start amlodipine 5mg po daily Qualifiers: Hypertension type: essential hypertension Qualified Code(s): I10 - Essential (primary) hypertension (4) DVT prophylaxis Current Visit: Yes Status: Acute Assessment and plan: On heparin drip - Time Spent With Patient Total time spent is greater than 50% in coordination of care (as documented) at patient's floor/unit and/or counseling patient: - Subjective Interval history: No acute events overnight - Constitutional Vitals: Temp Pulse Resp BP Pulse Ox 99.2 F 70 16 178/71 93 04/04/18 04:11 04/04/18 04:11 04/04/18 04:11 04/04/18 04:11 04/04/18 04:11 General appearance: Present: A&O X 3, no acute distress - Head Head exam: Present: atraumatic, normocephalic - Eye Eye exam: Present: PERRL, conjuntiva pink, sclera anicteric Pupils: Present: PERRL - Neck Neck exam general surgery: Present: supple, trachea midline. Absent: lymphadenopathy - Respiratory Respiratory exam: Present: CTAB. Absent: accessory muscle use, rales, rhonchi, wheezes - Cardiovascular Cardiovascular exam: Present: RRR, +S1, +S2. Absent: diastolic murmur, gallop, rubs, systolic murmur - GI/Abdominal GI/Abdominal exam: Present: normal bowel sounds, soft, no peritoneal signs. Absent: distended, tenderness - Extremities Exam Extremities exam: Present: warm, radial pulses palpable and symmetrical. Absent : calf tenderness, cyanotic, pedal edema Additional comments: faint lower extremity pulses - Neurological Exam Neurological exam: Present: CN II-XII intact, oriented X3, no focal deficits. Absent: pronater drift, facial droop, speech deficit - Skin Skin exam: Present: dry, intact Internal Medicine: Result - Labs CBC & Chem 7: 04/04/18 04:07 04/04/18 04:07 Labs: Short CBC 04/04/18 Range/Units 04:07 WBC 8.8 (4.3-11.1) K/mcL Hgb 12.7 L (12.9-16.9) g/dL Hct 37.8 (37.5-50.1) % Plt Count 167 (140-400) K/mcL Neutrophils # 6.5 (1.6-8.9) K/mcL BMP 04/04/18 04:07 Sodium 134 L Potassium 3.9 Chloride 103 Carbon Dioxide 24 BUN 12 Creatinine 0.79 Glucose 127 H Calcium 9.1 - Impressions Impressions Aorta w/Runoff CTA 04/03/18 10:00 IMPRESSION: 1. A small amount of acute appearing thrombus is present in the distal left popliteal artery, extending into the tibioperoneal trunk. However, the peroneal and posterior tibial arteries appear patent to the foot. The anterior tibial artery is occluded distally, which is age-indeterminate. 2. Small linear filling defects in the left common femoral and proximal superficial femoral arteries, which could represent small, nonflow limiting dissections or wall-adherent thrombus. 3. Possible mild to moderate stenosis at the origin of the right common iliac artery. Severe diffuse atherosclerosis in the right superficial femoral and popliteal arteries with multifocal stenoses, including a focal high-grade stenosis in the distal right superficial femoral artery. There is two vessel runoff to the right foot. 4. 11 x 7 mm calculus in the left renal pelvis. Inflammatory changes are present along the left renal pelvis, which could be related to acute or remote infection. No significant left-sided hydronephrosis. 5. 3.3 cm infrarenal abdominal aortic aneurysm. Follow-up per guidelines below. 6. 5 mm nonobstructive right-sided renal calculus. RECOMMENDATIONS: Managing Abdominal Aortic Aneurysms 3.0-3.4 cm: Every 3 years. *For abdominal aortas with maximum diameter of 2.6-2.9 cm meeting criteria for AAA (>50% of proximal normal segment). Reference: J Vasc Surg. 2009 Jul;50(4 Suppl):S2-49 D/ / 04/03/2018 14:19:07 Abhijeet Gonzalez MD / [email or web address] Interpreting Provider: Abhijeet Gonzalez MD - VTE Reasons for not Prescribing Prophylaxis: Not indicated-Anticoagulated or INR therapeutic Documentation of Mechanical Device: Intermittent pneumatic compression device Consult Discharge Plan - Plan Referrals: Mandy Kerr [Advanced Practice Nurse] - 04/10/18 2:00 pm (Please fill out the new patient packet and take with you to your appointment. Show up 15 mins early. If you do not receive the new patient packet before your appointment show up 30mins early to fill out paper work. You will need $125.00 for the first visit. Take a list of all medications including over the counter. Picture ID, Ins. cards. If you need to cancel please call [phone] within 24 hours of your appointment) Red Drummond MD [Partnered Physician] - 04/24/18 11:45 am
[2018-04-04] MEDS ORDERED: *HR* Remifentanil 1 MG VIAL IVP ONE ×3 (11:19→15:29)
[2018-04-04] MEDS ORDERED: *HR* Phenylephrine 10 MG/ML VIAL ONE (11:19)
[2018-04-04] MEDS ORDERED: ceFAZolin 2,000 MG in Water for inj. (sterile) 20 ML 20 ML IVP ONE (12:56)
[2018-04-04] MEDS ORDERED: *HR* Morphine 10 MG/ML VIAL ONE (13:43)
[2018-04-04] MEDS ORDERED: CefOXitin 2,000 MG VIAL ONE (16:32)
[2018-04-04] MEDS ORDERED: *HR* Metoprolol 5 MG/5 ML VIAL IVP ONE (16:36)
[2018-04-04] MEDS ORDERED: *HR* LORazepam 2 MG/ML VIAL ONE (17:06)
[2018-04-04] MEDS: *HR* LORazepam 2 MG/ML VIAL IVP STA ×2 (17:07→20:44)
[2018-04-04] MEDS: *HR* FentaNYL (PF) 100 MCG/2 ML VIAL IVP ONE ×2 (17:12→20:45)
[2018-04-04] MEDS ORDERED: Dexmedetomidine HCl 200 MCG/50 ML MLS IVC ONE (17:15)
--- NOTE | 2018-04-04 17:35 | Operative Note ---
Date of procedure: 04/04/18 Pre-op diagnosis: Persistent left lower extremity ischemia Post-op diagnosis: same Procedure: Left below-knee popliteal and tibial peroneal trunk endarterectomy with bovine pericardial patch angioplasty Catheter-based tibial thrombectomy Proximal left peroneal artery endarterectomy with bovine pericardial patch angioplasty Proximal and distal(at the level of the ankle) left posterior tibial artery endarterectomy with bovine pericardial patch angioplasties Complications: None Anesthesia: GETA Surgeon: Red Drummond Was there an assistant kitchen manager present: No Estimated blood loss (cc): 300 Specimen: None Condition: stable Disposition: PACU Procedure in Detail: History Carlos Cooper is a 62-year-old white male who was transferred as an emergency from [facility] on Sunday afternoon for severe left lower extremity ischemia with no Doppler signals and ankle-brachial index of 0. Patient states he had an acute onset of symptoms that morning. He presented to the emergency room there and was eventually referred to [facility] for treatment. The patient does not give any antecedent history of vascular disease. He underwent an emergency iliofemoral thrombectomy/embolectomy. Head zoroastrianism of excellent pulsatile flow into the femoral system. Postoperatively the patient had a slow but steady improvement to the left foot. The patient had Doppler signals that he had persistent symptoms of discomfort and he had no palpable pulses. A CT angiogram was obtained which demonstrated a combination of potential acute and chronic obstruction at the tibial peroneal trunk and distal below-knee popliteal artery. Therefore the patient is taken back to the operating room today to try to alleviate this persistent ischemia. Procedure After informed consent was obtained the patient was taken from the chavez to the operating room. General endotracheal anesthesia was established. The left lower extremity was sterilely prepped and draped. A timeout protocol was observed. An incision was then made via the medial aspect of the proximal calf. Dissection was carried down to the popliteal and tibial peroneal trunk area. The patient had a palpable popliteal pulse. There was no palpable pulse in the tibial peroneal trunk region. Dissection was then undertaken to control the tibial vessels and popliteal. The posterior tibial artery was found to be very small in diameter. The peroneal artery appeared to be the dominant runoff. The patient was on intravenous heparin and this was continued to and during the operation. Additional boluses of heparin were administered intermittently during this procedure. The distal below the knee popliteal and tibial peroneal trunk was then opened. A combination of acute findings and severe chronic atherosclerotic stenotic disease was identified. A formal endarterectomy was then performed of the distal aspect of the [id number] popliteal artery and the entire length of the tibial peroneal trunk. The orifice of the anterior tibial artery was also endarterectomized as was the area of the bifurcation into the peroneal and posterior tibial artery. As noted elsewhere the posterior tibial artery was small. The plaque removed was combination of dense calcific disease as well as bland atherosclerotic material. The thrombus was relatively small in quantity. A patch change plasty was then performed using 6-0 Prolene suture. This was sewn into position. After appropriate backbleeding and flushing the artery was opened. However upon doing this the patient did not have Doppler signals identified at the ankle. Therefore the posterior tibial artery was opened at the ankle. There was no signal or pulse over this vessel. An arteriotomy was made and a 2- Trinid[place] Donald catheter was placed retrograde. The catheter did not extend up to the level of the takeoff of the posterior tibial artery. The vessel was found to be compressed by a wee Glander. This area was then opened with an 11 blade knife and Dotson scissors. An endarterectomy was performed. The catheter was then placed both proximal using tooth Trinidadian and 3-Trinidadian Donald catheters. A patch angioplasty was performed over the proximal aspect of the posterior tibial artery. Then over the area of the distal posterior tibial artery at the ankle a patch angioplasty was performed here as well. Evaluation of the peroneal artery revealed severe disease as well. Therefore this area was further dissected. Control was obtained and then a longitudinal arteriotomy was made on the peroneal artery extending up to and very close to the end of the original patch angioplasty. This area was then formally endarterectomized. A 2 and 3-Trinidadian Donald catheter were passed distally into the peroneal artery towards the ankle. The area was then flushed with heparinized saline. A bovine pericardial patch change plasty was then performed of this vessel. After appropriate backbleeding and flushing the vessel was opened. There was excellent pulsatile flow threes vessels with an easily palpable and visible pulse. However distally there was only a very flattened monophasic signal at the posterior tibial artery above the ankle. It was thought that this was due to the patient's prolonged procedure and vasospasm. Therefore the patient will be continued on his anticoagulation medicine and will not have further interventions. The wounds were then irrigated. There were closed in layers using absorbable suture. Dry sterile dressings were applied. The patient was extubated in the operating room. He was taken from the operating room to the recovery room in stable condition. No blood transfusions were administered. There were no specimens for the operation.
[2018-04-04] MEDS ORDERED: *HR* Labetalol 100 MG/20 ML MDV IVP PRN (17:53)
[2018-04-04] MEDS ORDERED: Heparin 25,000 UNIT/500 ML D5W 25,000 UNIT/500 ML BAG IVC SCH (17:53)
[2018-04-04] MEDS ORDERED: D5% in 0.45% NACL 1,000 ML IVC SCH (17:53)
[2018-04-04] MEDS ORDERED: *HR* HYDROcodone/Acet 5/325 mg TABLET PO PRN ×2 (17:53)
[2018-04-04] MEDS ORDERED: *HR* Heparin 5,000 UNIT/ML VIAL IVP PRN ×2 (17:53)
[2018-04-04] MEDS ORDERED: Acetaminophen 325 MG TABLET PO PRN ×2 (17:53)
[2018-04-04] MEDS ORDERED: *HR* OxyCODONE Immed Rel 5 MG TABLET PO PRN (17:53)
[2018-04-04] MEDS ORDERED: Naloxone 0.4 MG/ML INJ IVP PRN ×3 (17:53)
[2018-04-04] MEDS ORDERED: Melatonin 3 MG TABLET PO PRN (17:53)
[2018-04-04] MEDS ORDERED: Ringers Solution, Lactated 1,000 ML ONE (19:17)
[2018-04-04 20:04] LABS: ABG Base Excess 2 mEq/L (-2 to 3); ABG HCO3 26 mEq/L (21-27); ABG Oxygen Saturation 94 % (95-98); ABG PCO2 42 mmHg (35-45); ABG PH 7.41 pH Units (7.32-7.45); ABG PO2 70 mmHg (85-104); ABG TCO2 28 mEq/L (20-26)
[2018-04-04 20:27] LABS: Potassium 4.4 mEq/L (3.5-5.1)
[2018-04-04 20:32] LABS: Activated Partial Thrombo Time 120.2 Seconds (26.0-36.0)
[2018-04-04 20:45] LABS: Heparin anti-factor XA UFH 0.93 IU/mL (0.30-0.70)
[2018-04-05] MEDS: amLODIPine 5 MG TABLET PO SCH (07:58)
--- NOTE | 2018-04-05 09:43 | Anesthesia Procedures ---
Date of Encounter: 04/04/18 Time of Encounter: 07:40 Procedures: Anesthesia - Arterial Line Consent obtained: written consent Time out performed: Yes Sedation: Versed (mg): 2 Supplemental Oxygen via Nasal Cannula (L/min): 2 Local Anesthetic: Lidocaine 1% Size (Gauge): 20 Length (inches): 1 3/4 Technique Used: sterile prep Post-Procedure: line taped into place, dry sterile dressing placed Patient tolerated procedure: well Complications: none Site: Radial R Comments: Radial artery cannulated easy, atraumatic placement of catheter. Brisk pulsatile blood flow. Patient tolerated procedure well.
--- NOTE | 2018-04-05 13:26 | Internal Med Progress Note ---
Date of Encounter: 04/05/18 Time of Encounter: 13:40 - Assessment and plan (1) Ischemia of left lower extremity Current Visit: Yes Status: Acute Assessment and plan: s/p limb salvage surgery wih left lower extremity thrombectomy, Vascular surgery following. Vascular surgery suspect patient has distal disease in popliteal area. CT angiogram done 04/03 showed left lower lesion at distal popliteal and tibial peroneal trunk on the left. Vascular surgery performed a left below-knee popliteal and tibial peroneal trunk endarterectomy with bovine pericardial patch angioplasty, Catheter-based tibial thrombectomyProximal left peroneal artery endarterectomy with bovine pericardial patch angioplasty and Proximal and distal(at the level of the ankle) and left posterior tibial artery endarterectomy with bovine pericardial patch angioplasties on 04/04. Transferred to ICU post procedure (2) PAD (peripheral artery disease) Current Visit: Yes Status: Acute Assessment and plan: s/p surgery.Continue heparin drip (3) HTN (hypertension) Current Visit: Yes Status: Acute Assessment and plan: hydralazine and labetalol PRN. Will start amlodipine 5mg po daily Qualifiers: Hypertension type: essential hypertension Qualified Code(s): I10 - Essential (primary) hypertension (4) DVT prophylaxis Current Visit: Yes Status: Acute Assessment and plan: On heparin drip - Time Spent With Patient Total time spent is greater than 50% in coordination of care (as documented) at patient's floor/unit and/or counseling patient: - Subjective Interval history: No acute events overnight - Constitutional Vitals: Temp Pulse Resp BP Pulse Ox 97.9 F 86 18 151/63 93 04/05/18 12:00 04/05/18 13:00 04/05/18 13:00 04/05/18 13:00 04/05/18 13:00 General appearance: Present: A&O X 3, no acute distress - Head Head exam: Present: atraumatic, normocephalic - Eye Eye exam: Present: PERRL, conjuntiva pink, sclera anicteric Pupils: Present: PERRL - Neck Neck exam general surgery: Present: supple, trachea midline. Absent: lymphadenopathy - Respiratory Respiratory exam: Present: CTAB. Absent: accessory muscle use, rales, rhonchi, wheezes - Cardiovascular Cardiovascular exam: Present: RRR, +S1, +S2. Absent: diastolic murmur, gallop, rubs, systolic murmur - GI/Abdominal GI/Abdominal exam: Present: normal bowel sounds, soft, no peritoneal signs. Absent: distended, tenderness - Extremities Exam Extremities exam: Present: warm, radial pulses palpable and symmetrical. Absent : calf tenderness, cyanotic, pedal edema - Neurological Exam Neurological exam: Present: CN II-XII intact, oriented X3, no focal deficits. Absent: pronater drift, facial droop, speech deficit - Skin Skin exam: Present: dry, intact Internal Medicine: Result - Labs CBC & Chem 7: 04/04/18 04:07 04/04/18 19:37 Labs: BMP 04/04/18 19:37 Sodium 137 Potassium 4.4 Chloride 106 Carbon Dioxide 25 - ABG Interpretation ABG results: ABG ABG pH 7.41 pH Units (7.32-7.45) 04/04/18 20:01 ABG pCO2 42 mmHg (35-45) 04/04/18 20:01 ABG pO2 70 mmHg (85-104) L 04/04/18 20:01 ABG O2 Saturation 94 % (95-98) L 04/04/18 20:01 - Impressions Impressions Aorta w/Runoff CTA 04/03/18 10:00 IMPRESSION: 1. A small amount of acute appearing thrombus is present in the distal left popliteal artery, extending into the tibioperoneal trunk. However, the peroneal and posterior tibial arteries appear patent to the foot. The anterior tibial artery is occluded distally, which is age-indeterminate. 2. Small linear filling defects in the left common femoral and proximal superficial femoral arteries, which could represent small, nonflow limiting dissections or wall-adherent thrombus. 3. Possible mild to moderate stenosis at the origin of the right common iliac artery. Severe diffuse atherosclerosis in the right superficial femoral and popliteal arteries with multifocal stenoses, including a focal high-grade stenosis in the distal right superficial femoral artery. There is two vessel runoff to the right foot. 4. 11 x 7 mm calculus in the left renal pelvis. Inflammatory changes are present along the left renal pelvis, which could be related to acute or remote infection. No significant left-sided hydronephrosis. 5. 3.3 cm infrarenal abdominal aortic aneurysm. Follow-up per guidelines below. 6. 5 mm nonobstructive right-sided renal calculus. RECOMMENDATIONS: Managing Abdominal Aortic Aneurysms 3.0-3.4 cm: Every 3 years. *For abdominal aortas with maximum diameter of 2.6-2.9 cm meeting criteria for AAA (>50% of proximal normal segment). Reference: J Vasc Surg. 2008;50(4 Suppl):S2-49 D/ / 04/03/2018 14:19:07 Abhijeet Gonzalez MD / varun Interpreting Provider: Abhijeet Gonzalez MD Chest X-Ray 04/04/18 19:31 IMPRESSION: No acute abnormality. D/ / Dominick Dove MD / Dominick Dove MD Interpreting Provider: Dominick Dove MD - VTE Reasons for not Prescribing Prophylaxis: Not indicated-Anticoagulated or INR therapeutic Documentation of Mechanical Device: Intermittent pneumatic compression device Consult Discharge Plan - Plan Referrals: Mandy Kerr [Advanced Practice Nurse] - 04/10/18 2:00 pm (Please fill out the new patient packet and take with you to your appointment. Show up 15 mins early. If you do not receive the new patient packet before your appointment show up 30mins early to fill out paper work. You will need $125.00 for the first visit. Take a list of all medications including over the counter. Picture ID, Ins. cards. If you need to cancel please call [phone] within 24 hours of your appointment) Red Drummond MD [Partnered Physician] - 04/24/18 11:45 am
--- NOTE | 2018-04-05 14:48 | Vascular/[facility]as Progress Note ---
Date of Encounter: 04/05/18 Time of Encounter: 13:00 - Assessment and plan (1) PAD (peripheral artery disease) Current Visit: Yes Status: Acute Patent left lower extremity endarterectomies and patch angioplasties. Excellent perfusion to left foot. Patient has discomfort in left calf as expected following major intervention and dissection. There are no findings to suggest a hematoma or compartment syndrome. Patient's physical status may now be advanced with ambulation and sitting up in a chair. I have requested physical therapy evaluation. Due to the findings of the acute embolus in the left iliac system I've recommended that the patient go on anticoagulation for a minimum of 3 months. I' ve stopped his IV heparin and have initiated Xarleto therapy for this afternoon. I have reviewed in detail the patient's medical status with the patient's via a telephone conversation this afternoon. All questions were answered. (2) HTN (hypertension) Current Visit: Yes Status: Acute The patient has history of severe hypertension. This will need further workup and treatment per medical service. His blood pressure following surgery shows moderate systolic hypertension. Patient was given a dose of IV hydralazine for blood pressure control earlier today and was also given a dose of IV beta- blockade. Qualifiers: Hypertension type: essential hypertension Qualified Code(s): I10 - Essential (primary) hypertension (3) Left nephrolithiasis Current Visit: Yes Status: Acute Patient has left-sided stone. It is asymptomatic. By CT angiogram evaluation on Sunday there were no findings to suggest obstruction to the collecting system or to the kidney. On reviewing this with the patient he has no previous history of kidney stones. I explained that this would need to be followed but it was not and urgency or an emergency at this time. The presence of the left- sided kidney stone was also discussed with the patient's so she was aware of this should it become symptomatic in the future. This will need to be addressed as part of his outpatient follow-up with primary care for both his hypertension and kidney stones. - Subjective Interval history: Patient is postoperative day #4 following emergency iliac thrombectomy. Patient is postoperative day #1 following extensive popliteal and tibial endarterectomy and thrombectomy. The patient had a febrile response and significant agitation and confusion following surgery last night in the recovery room. He was transferred to the intensive care unit for observation. His sensorium has cleared and his temperature has returned to normal. The patient denies any significant discomfort or pain. He states his left foot is feeling better. He has been hemodynamically stable in the intensive care unit with a trend towards moderate systolic hypertension. The patient has tolerated his meals without nausea or vomiting. Vital Signs, Last 4 Hours Temp Pulse Resp BP Pulse Ox 04/05/18 13:00 86 18 151/63 93 04/05/18 12:00 97.9 F 84 18 159/71 95 04/05/18 11:57 97.9 F 04/05/18 11:00 81 20 172/74 95 - Physical Examination General: Present: Conversant, No Apparent Distress, Well developed, Well nourished Neck: Absent: JVD Cardiac: Present: Reg Rate and Rhythm, No Murmur. Absent: Irregular Rhythm Lungs: Present: Normal Breath Sounds Neuro: Present: Alert and responsive, No focal deficits noted, Cranial nerves grossly intact, Motor nerves grossly intact, Sensory nerves grossly intact Vascular: Present: Color/Temperature (His left foot is warm and pink. It is warmer and pinker than the right foot. The temperature and color is the best that it has been since been admitted to the hospital. The patient has Doppler signals 3 with the dominant Doppler signal over the dorsalis pedis artery. The left calf incisions are covered with surgical dressings.), Surgical incisions ( The left groin incision is clean and dry.). Absent: Cyanosis Abdomen: Present: Soft, Non-tender. Absent: Masses Skin: Present: No rashes noted on visualized skin - VTE Reasons for not Prescribing Prophylaxis: Not indicated-Anticoagulated or INR therapeutic Documentation of Mechanical Device: Intermittent pneumatic compression device Results 04/04/18 04:07 04/04/18 19:37 Lab Results, Last 24 hours 04/04/18 04/04/18 04/05/18 19:37 19:37 02:42 APTT 120.2 H* D 71.8 H Sodium 137 Potassium 4.4 Chloride 106 Carbon Dioxide 25 04/05/18 08:55 APTT 57.9 H Sodium Potassium Chloride Carbon Dioxide - Imaging / Other Tests Chest Xray: report reviewed, image reviewed Consult Discharge Plan - Plan Additional Instructions: Keep left lower extremity elevated while sitting to avoid deep dependent edema. Keep left lower extremity incisions dry for a total of 5 days following surgery. No lifting greater than 10 pounds. No automobile driving. No manual labor. Follow-up with Dr. Drummond in 2 weeks in outpatient vascular surgery clinic. Continued Xarleto at 20 mg by mouth for 3 weeks and then 15 mg twice a day due to left iliac embolism with no findings of obvious etiology for this process.. Referrals: Mandy Kerr [Advanced Practice Nurse] - 04/10/18 2:00 pm (Please fill out the new patient packet and take with you to your appointment. Show up 15 mins early. If you do not receive the new patient packet before your appointment show up 30mins early to fill out paper work. You will need $125.00 for the first visit. Take a list of all medications including over the counter. Picture ID, Ins. cards. If you need to cancel please call [phone] within 24 hours of your appointment) Red Drummond MD [Partnered Physician] - 04/24/18 11:45 am
[2018-04-05 16:12] LABS: Basophils % 0.2 %; Hematocrit 34.4 % (37.5-50.1); Hemoglobin 11.3 g/dL (12.9-16.9); Immature Granulocytes % 0.7 % (0-4); Lymphocytes # 0.8 K/mcL (0.6-4.6); Lymphocytes % 6.7 %; Mean Corpuscular HGB Conc 32.8 g/dL (31.6-35.5); Mean Corpuscular Hemoglobin 28.9 pg (28.0-33.3); Mean Platelet Volume 9.8 fL (9.4-12.4); Monocytes # 1.1 K/mcL (0.0-1.3); Monocytes % 9.4 %; Platelet Count 228 K/mcL (140-400); Red Blood Count 3.91 M/mcL (4.19-5.50); Red Cell Distribution Width 12.5 % (11.5-14.5)
[2018-04-05 16:30] LABS: BUN/Creatinine Ratio 20 (6-26); Blood Urea Nitrogen 17 mg/dL (8-23); Calcium 9.3 mg/dL (8.6-10.3); Carbon Dioxide 30 mEq/L (23-29); Chloride 103 mEq/L (98-107); Glucose 132 mg/dL (70-105); Osmolality,Calculated 289 (280-300); Potassium 3.9 mEq/L (3.5-5.1); Sodium 138 mEq/L (136-145); eGFR For African Americans > 60 (> 60); eGFR For Non-African Americans > 60 (> 60)
[2018-04-05] MEDS: *HR* Rivaroxaban 10 MG TABLET PO SCH (17:15)
[2018-04-06 02:39] LABS: Basophils % 0.2 %; Eosinophils % 0.2 %; Hematocrit 29.7 % (37.5-50.1); Immature Granulocytes % 0.6 % (0-4); Lymphocytes # 0.9 K/mcL (0.6-4.6); Lymphocytes % 9.4 %; Mean Corpuscular HGB Conc 32.7 g/dL (31.6-35.5); Mean Corpuscular Hemoglobin 28.4 pg (28.0-33.3); Mean Corpuscular Volume 86.8 fL (83.0-100.0); Mean Platelet Volume 10.1 fL (9.4-12.4); Monocytes # 0.9 K/mcL (0.0-1.3); Monocytes % 9.4 %; Neutrophils # 7.6 K/mcL (1.6-8.9); Platelet Count 209 K/mcL (140-400); Red Blood Count 3.42 M/mcL (4.19-5.50); Red Cell Distribution Width 12.7 % (11.5-14.5); Segmented Neutrophils % 80.2 %
[2018-04-06 02:40] LABS: Hemoglobin 9.7 g/dL (12.9-16.9)
[2018-04-06 02:55] LABS: BUN/Creatinine Ratio 23 (6-26); Blood Urea Nitrogen 17 mg/dL (8-23); Calcium 8.9 mg/dL (8.6-10.3); Carbon Dioxide 24 mEq/L (23-29); Chloride 105 mEq/L (98-107); Glucose 122 mg/dL (70-105); Osmolality,Calculated 289 (280-300); Potassium 3.7 mEq/L (3.5-5.1); Sodium 138 mEq/L (136-145); eGFR For African Americans > 60 (> 60); eGFR For Non-African Americans > 60 (> 60)
[2018-04-06] MEDS: D5% in 0.45% NACL 1,000 ML IVC SCH (07:42)
[2018-04-06] MEDS: amLODIPine 5 MG TABLET PO SCH ×2 (07:42→07:50)
[2018-04-06] MEDS: Heparin 25,000 UNIT/500 ML D5W 25,000 UNIT/500 ML BAG IVC SCH (07:42)
[2018-04-06] MEDS ORDERED: amLODIPine 5 MG TABLET PO ONE (12:47)
--- NOTE | 2018-04-06 13:00 | Internal Med Progress Note ---
Date of Encounter: 04/06/18 Time of Encounter: 13:00 - Assessment and plan (1) Ischemia of left lower extremity Current Visit: Yes Status: Acute Assessment and plan: s/p limb salvage surgery wih left lower extremity thrombectomy, Vascular surgery following. CT angiogram done 04/03 showed left lower lesion at distal popliteal and tibial peroneal trunk on the left. Vascular surgery performed a left below-knee popliteal and tibial peroneal trunk endarterectomy with bovine pericardial patch angioplasty, Catheter-based tibial thrombectomyProximal left peroneal artery endarterectomy with bovine pericardial patch angioplasty and Proximal and distal(at the level of the ankle) and left posterior tibial artery endarterectomy with bovine pericardial patch angioplasties on 04/04. Currently stable. Off heparin drip and now on xarelto. Awaiting PT recs for discharge planning (2) PAD (peripheral artery disease) Current Visit: Yes Status: Acute Assessment and plan: s/p surgery.Continue heparin drip (3) HTN (hypertension) Current Visit: Yes Status: Acute Assessment and plan: hydralazine and labetalol PRN. Will start amlodipine 5mg po daily Qualifiers: Hypertension type: essential hypertension Qualified Code(s): I10 - Essential (primary) hypertension (4) DVT prophylaxis Current Visit: Yes Status: Acute Assessment and plan: On heparin drip - Time Spent With Patient Total time spent is greater than 50% in coordination of care (as documented) at patient's floor/unit and/or counseling patient: - Subjective Interval history: No acute events overnight - Constitutional Vitals: Temp Pulse Resp BP Pulse Ox 99.3 F 76 20 169/77 94 04/06/18 10:57 04/06/18 10:57 04/06/18 10:57 04/06/18 10:57 04/06/18 10:57 General appearance: Present: A&O X 3, no acute distress - Head Head exam: Present: atraumatic, normocephalic - Eye Eye exam: Present: PERRL, conjuntiva pink, sclera anicteric Pupils: Present: PERRL - Neck Neck exam general surgery: Present: supple, trachea midline. Absent: lymphadenopathy - Respiratory Respiratory exam: Present: CTAB. Absent: accessory muscle use, rales, rhonchi, wheezes - Cardiovascular Cardiovascular exam: Present: RRR, +S1, +S2. Absent: diastolic murmur, gallop, rubs, systolic murmur - GI/Abdominal GI/Abdominal exam: Present: normal bowel sounds, soft, no peritoneal signs. Absent: distended, tenderness - Extremities Exam Extremities exam: Present: warm, radial pulses palpable and symmetrical. Absent : calf tenderness, cyanotic, pedal edema - Neurological Exam Neurological exam: Present: CN II-XII intact, oriented X3, no focal deficits. Absent: pronater drift, facial droop, speech deficit - Skin Skin exam: Present: dry, intact Internal Medicine: Result - Labs CBC & Chem 7: 04/06/18 00:50 04/06/18 00:50 Labs: Short CBC 04/05/18 04/06/18 Range/Units 15:47 00:50 WBC 12.1 H 9.5 (4.3-11.1) K/mcL Hgb 11.3 L 9.7 L D (12.9-16.9) g/dL Hct 34.4 L 29.7 L (37.5-50.1) % Plt Count 228 209 (140-400) K/mcL Neutrophils # 10.0 H 7.6 (1.6-8.9) K/mcL BMP 04/05/18 04/06/18 15:47 00:50 Sodium 138 138 Potassium 3.9 3.7 Chloride 103 105 Carbon Dioxide 30 H 24 BUN 17 17 Creatinine 0.86 0.73 Glucose 132 H 122 H Calcium 9.3 8.9 - ABG Interpretation ABG results: ABG ABG pH 7.41 pH Units (7.32-7.45) 04/04/18 20:01 ABG pCO2 42 mmHg (35-45) 04/04/18 20:01 ABG pO2 70 mmHg (85-104) L 04/04/18 20:01 ABG O2 Saturation 94 % (95-98) L 04/04/18 20:01 - VTE Reasons for not Prescribing Prophylaxis: Not indicated-Anticoagulated or INR therapeutic Documentation of Mechanical Device: Intermittent pneumatic compression device Consult Discharge Plan - Plan Additional Instructions: Keep left lower extremity elevated while sitting to avoid deep dependent edema. Keep left lower extremity incisions dry for a total of 5 days following surgery. No lifting greater than 10 pounds. No automobile driving. No manual labor. Follow-up with Dr. Drummond in 2 weeks in outpatient vascular surgery clinic. Continued Xarleto at 20 mg by mouth for 3 weeks and then 15 mg twice a day due to left iliac embolism with no findings of obvious etiology for this process.. Referrals: Mandy Kerr [Advanced Practice Nurse] - 04/10/18 2:00 pm (Please fill out the new patient packet and take with you to your appointment. Show up 15 mins early. If you do not receive the new patient packet before your appointment show up 30mins early to fill out paper work. You will need $125.00 for the first visit. Take a list of all medications including over the counter. Picture ID, Ins. cards. If you need to cancel please call [phone] within 24 hours of your appointment) Red Drummond MD [Partnered Physician] - 04/24/18 11:45 am
--- NOTE | 2018-04-06 14:14 | Vascular/[facility] Progress Note ---
Date of Encounter: 04/06/18 Time of Encounter: 13:45 - Assessment and plan (1) PAD (peripheral artery disease) Current Visit: Yes Status: Acute The patient is postoperative day #2 after extensive left lower extremity endarterectomy and embolectomy. He is able to ambulate with the assistance of a walker. His left lower extremity is neurovascularly intact. His polyphasic signals in his foot. He will remain on anticoagulation. Discharge planning is dependent upon physical therapy recommendations. He will follow-up with Dr. Drummond after discharge. - Subjective Interval history: The patient reports that his leg feels better today than it did yesterday. He was observed during physical therapy evaluation. He was able to ambulate in his room with the assistance of a walker. He denies any chest or shortness of breath. Vital Signs, Last 4 Hours Temp Pulse Resp BP Pulse Ox 04/06/18 10:57 99.3 F 76 20 169/77 94 - Physical Examination General: Present: Conversant, No Apparent Distress Cardiac: Present: Reg Rate and Rhythm Lungs: Present: Normal Breath Sounds Neuro: Present: Alert and responsive, Motor nerves grossly intact, Sensory nerves grossly intact Vascular: Present: Normal capillary refill, Pulse, normal (Pedal signals present in the left lower extremity), Edema (Trace postoperative lower extremity edema consistent with recent revascularization), Surgical incisions ( Incisions are clean dry and intact without erythema or drainage.) Abdomen: Present: Soft Skin: Present: No rashes noted on visualized skin - VTE Reasons for not Prescribing Prophylaxis: Not indicated-Anticoagulated or INR therapeutic Documentation of Mechanical Device: Intermittent pneumatic compression device Results 04/06/18 00:50 04/06/18 00:50 Lab Results, Last 24 hours 04/05/18 04/05/18 04/05/18 15:47 15:47 15:47 WBC 12.1 H Hgb 11.3 L Hct 34.4 L Plt Count 228 APTT 72.4 H Sodium 138 Potassium 3.9 Chloride 103 Carbon Dioxide 30 H BUN 17 Creatinine 0.86 Glucose 132 H Calcium 9.3 04/06/18 04/06/18 00:50 00:50 WBC 9.5 Hgb 9.7 L D Hct 29.7 L Plt Count 209 APTT Sodium 138 Potassium 3.7 Chloride 105 Carbon Dioxide 24 BUN 17 Creatinine 0.73 Glucose 122 H Calcium 8.9 Consult Discharge Plan - Plan Additional Instructions: Keep left lower extremity elevated while sitting to avoid deep dependent edema. Keep left lower extremity incisions dry for a total of 5 days following surgery. No lifting greater than 10 pounds. No automobile driving. No manual labor. Follow-up with Dr. Drummond in 2 weeks in outpatient vascular surgery clinic. Continued Xarleto at 20 mg by mouth for 3 weeks and then 15 mg twice a day due to left iliac embolism with no findings of obvious etiology for this process.. Referrals: Mandy Kerr [Advanced Practice Nurse] - 04/10/18 2:00 pm (Please fill out the new patient packet and take with you to your appointment. Show up 15 mins early. If you do not receive the new patient packet before your appointment show up 30mins early to fill out paper work. You will need $125.00 for the first visit. Take a list of all medications including over the counter. Picture ID, Ins. cards. If you need to cancel please call [phone] within 24 hours of your appointment) Red Drummond MD [Partnered Physician] - 04/24/18 11:45 am
[2018-04-06] MEDS: *HR* Rivaroxaban 10 MG TABLET PO SCH (16:07)
[2018-04-07 02:15] LABS: Basophils % 0.3 %; Eosinophils % 0.4 %; Hematocrit 30.7 % (37.5-50.1); Hemoglobin 10.4 g/dL (12.9-16.9); Immature Granulocytes % 0.7 % (0-4); Lymphocytes # 1.1 K/mcL (0.6-4.6); Lymphocytes % 10.3 %; Mean Corpuscular HGB Conc 33.9 g/dL (31.6-35.5); Mean Corpuscular Hemoglobin 29.6 pg (28.0-33.3); Mean Corpuscular Volume 87.5 fL (83.0-100.0); Mean Platelet Volume 9.8 fL (9.4-12.4); Monocytes # 0.8 K/mcL (0.0-1.3); Monocytes % 8.1 %; Neutrophils # 8.4 K/mcL (1.6-8.9); Platelet Count 223 K/mcL (140-400); Red Blood Count 3.51 M/mcL (4.19-5.50); Red Cell Distribution Width 12.4 % (11.5-14.5); Segmented Neutrophils % 80.2 %
[2018-04-07 02:32] LABS: BUN/Creatinine Ratio 28 (6-26); Blood Urea Nitrogen 21 mg/dL (8-23); Calcium 8.8 mg/dL (8.6-10.3); Carbon Dioxide 25 mEq/L (23-29); Chloride 103 mEq/L (98-107); Glucose 106 mg/dL (70-105); Osmolality,Calculated 285 (280-300); Potassium 3.9 mEq/L (3.5-5.1); Sodium 136 mEq/L (136-145); eGFR For African Americans > 60 (> 60); eGFR For Non-African Americans > 60 (> 60)
[2018-04-07 07:04] VITALS: BP 179/88
[2018-04-07] MEDS ORDERED: amLODIPine 5 MG TABLET PO SCH (09:00)
--- NOTE | 2018-04-07 10:12 | Discharge Summary ---
Orders not resulted at time of discharge: Pending orders 04/04/18 22:20 Culture,Blood [BC] Stat 04/08/18 04:00 Basic Metabolic Panel AM 0400 CBC [Complete Blood Count] [HEME] AM 0400 04/09/18 04:00 Basic Metabolic Panel AM 0400 CBC [Complete Blood Count] [HEME] AM 0400 04/10/18 04:00 Basic Metabolic Panel AM 0400 CBC [Complete Blood Count] [HEME] AM 0400 04/11/18 04:00 Basic Metabolic Panel AM 0400 CBC [Complete Blood Count] [HEME] AM 0400 Date of Encounter: 04/07/18 Time of Encounter: 10:00 - Discharge Diagnosis (1) Ischemia of left lower extremity Priority: Primary Status: Acute Assessment and Plan: 62 year old male with past medical history of PAD, HTN, and former smoker.Pt presented to [facility] with sudden onset of LLE pain and numbness. Pt states he was not able to move his LLE on day of admission. Reports it was painful and cold to the touch. At [facility] he was reported to have no distal pulses in either extremity and was unable to obatin doppler pulses. Also was unable to perform CT due to poor GFR and elevated Cr. Arterial doppler performed showed 75% stenosis of R superficial femoral artery and nearly 100% occlusion to left leg distal knee. ED administered Morphine and fentanyl for pain control and started on a heparin drip. He was seen by vascular surgery here and initially underwent a limb salvage surgery with left lower extremity thrombectomy on 04/02. He had a CT angiogram done 04/03 showed left lower lesion at distal popliteal and tibial peroneal trunk on the left. Vascular surgery performed a left below- knee popliteal and tibial peroneal trunk endarterectomy with bovine pericardial patch angioplasty, Catheter-based tibial thrombectomy and proximal left peroneal artery endarterectomy with bovine pericardial patch angioplasty and Proximal and distal(at the level of the ankle) and left posterior tibial artery endarterectomy with bovine pericardial patch angioplasties on 04/04. He was transitioned off heparin drip and started on xarelto. Left lower extremity was greatly improved after procedures. He was also noted to have hypertension here and was started on amlodipine. He will follow up with vascular surgery and PCP outpatient. 35minutes was spent discharging this patient (2) PAD (peripheral artery disease) Priority: Secondary Status: Acute (3) HTN (hypertension) Priority: Secondary Status: Acute Qualifiers: Hypertension type: essential hypertension Qualified Code(s): I10 - Essential (primary) hypertension (4) DVT prophylaxis Priority: Secondary Status: Acute Hospital course: Mr. Cooper is a 62 year old male - Time Spent with Patient Total time spent providing and/or coordinating discharge services: - Discharge Medications Prescriptions: Acetaminophen [Tylenol] 650 mg PO Q6HR PRN #60 tablet PRN Reason: Mild Pain/Fever amLODIPine [Norvasc] 10 mg PO DAILY #60 tablet Rivaroxaban [Xarelto] 20 mg PO 1700 #60 tablet Home Medications: Acetaminophen [Tylenol] 650 mg PO Q6HR PRN #60 tablet 04/07/18 [Rx] Rivaroxaban [Xarelto] 20 mg PO 1700 #60 tablet 04/07/18 [Rx] amLODIPine [Norvasc] 10 mg PO DAILY #60 tablet 04/07/18 [Rx] Allergies/Adverse Reactions: 3 Allergy/AdvReac Type Severity Reaction Status Date / Time No Known Allergies Allergy Verified 04/01/18 16:14 Date of admission: 04/01/18 15:45 Primary care physician: PCP NONE Consults: 04/05/18 14:00 Consult to Physical Therapy [CONS] Routine Comment: Evaluate, develop and implement POC Reason for Consult: s/p complicated left leg revascularization needs assistance for ambulation/eval for out pt needs Does patient have active BEDREST order?: No Is patient medically & hemodynamically stable?: Yes - Constitutional Vitals: Temp Pulse Resp BP Pulse Ox 99.2 F 71 19 179/88 95 04/07/18 07:00 04/07/18 07:00 04/07/18 07:00 04/07/18 07:00 04/07/18 07:00 General appearance: Present: A&O X 3, no acute distress - Head Head exam: Present: atraumatic, normocephalic - Eye Eye exam: Present: PERRL, conjuntiva pink, sclera anicteric Pupils: Present: PERRL - Neck Neck exam general surgery: Present: supple, trachea midline. Absent: lymphadenopathy - Respiratory Respiratory exam: Present: CTAB. Absent: accessory muscle use, rales, rhonchi, wheezes - Cardiovascular Cardiovascular exam: Present: RRR, +S1, +S2. Absent: diastolic murmur, gallop, rubs, systolic murmur - GI/Abdominal GI/Abdominal exam: Present: normal bowel sounds, soft, no peritoneal signs. Absent: distended, tenderness - Extremities Exam Extremities exam: Present: warm, radial pulses palpable and symmetrical. Absent : calf tenderness, cyanotic, pedal edema - Neurological Exam Neurological exam: Present: CN II-XII intact, oriented X3, no focal deficits. Absent: pronater drift, facial droop, speech deficit - Skin Skin exam: Present: dry, intact - Patient Status Disposition: Home, Self-Care Condition: Good - Discharge Instructions Follow Up With: Mandy Kerr [Advanced Practice Nurse] - 04/10/18 2:00 pm (Please fill out the new patient packet and take with you to your appointment. Show up 15 mins early. If you do not receive the new patient packet before your appointment show up 30mins early to fill out paper work. You will need $125.00 for the first visit. Take a list of all medications including over the counter. Picture ID, Ins. cards. If you need to cancel please call [phone] within 24 hours of your appointment) Red Drummond MD [Partnered Physician] - 04/24/18 11:45 am Additional Instructions: Keep left lower extremity elevated while sitting to avoid deep dependent edema. Keep left lower extremity incisions dry for a total of 5 days following surgery. No lifting greater than 10 pounds. No automobile driving. No manual labor. Follow-up with Dr. Drummond in 2 weeks in outpatient vascular surgery clinic. Continued Xarleto at 20 mg by mouth for 3 weeks and then 15 mg twice a day due to left iliac embolism with no findings of obvious etiology for this process.. - VTE Reasons for not Prescribing Prophylaxis: Not indicated-Anticoagulated or INR therapeutic Documentation of Mechanical Device: Intermittent pneumatic compression device
== END 2018-04-07 13:45 | disposition home or self-care (01) | DRG 272 ==
LOC: 2NNU 15:45 → ICNU 04-04 19:35 → 2NNU 04-05 15:13
PROVIDERS: ADMIT Family Medicine; ATTEND Family Medicine